=== PATIENT | male | born 1970 | race Caucasian/White ===

== ENCOUNTER 2020-11-23 09:48 | Observation (INO) | payer OTHER ==
[2020-11-23] MEDS ORDERED: ASPIRIN 81 MG PO STA (10:18)
[2020-11-23] MEDS ORDERED: LORazepam 1 MG TAB PO STA (10:18)
--- NOTE | 2020-11-23 10:22 | ED ---
General Adult HPI - General Chief complaint: Chest Pain Stated complaint: elevated BP Time Seen by Provider: 11/23/20 10:01 Source: patient, RN notes reviewed Mode of arrival: ambulatory Limitations: no limitations - History of Present Illness Initial comments: Patient is a pleasant 50-year-old male presenting to the emergency Department with chest discomfort. Onset of symptoms was this morning. Discomfort feels like heaviness. No radiation. Patient does feel somewhat anxious and tingling throughout. No associated dyspnea, nausea, or diaphoresis. Discomfort is mild and remains mild. No history of similar symptoms previously. Patient states she does have history of borderline hypertension. - Related Data Home Medications Medication Instructions Recorded Confirmed Aspirin EC [Ecotrin Low Dose] 81 mg PO HS 11/23/20 11/23/20 Ibuprofen [Motrin Ib] 200 - 400 mg PO Q8H PRN 11/23/20 11/23/20 Meloxicam [Mobic] 15 mg PO HS 11/23/20 11/23/20 tiZANidine [Zanaflex] 4 mg PO HS 11/23/20 11/23/20 Allergies Allergy/AdvReac Type Severity Reaction Status Date / Time No Known Allergies Allergy Verified 11/23/20 10:55 Review of Systems ROS Statement: Those systems with pertinent positive or pertinent negative responses have been documented in the HPI. ROS Other: All systems not noted in ROS Statement are negative. Constitutional: Denies: fever Eyes: Denies: eye pain ENT: Denies: ear pain Respiratory: Denies: cough, dyspnea Cardiovascular: Reports: as per HPI, chest pain Endocrine: Denies: fatigue Gastrointestinal: Denies: abdominal pain Genitourinary: Denies: dysuria Musculoskeletal: Denies: back pain Skin: Denies: rash Neurological: Denies: headache Past Medical History Past Medical History: Hypertension History of Any Multi-Drug Resistant Organisms: None Reported Past Surgical History: No Surgical Hx Reported Past Psychological History: No Psychological Hx Reported Smoking Status: Former smoker Past Alcohol Use History: Daily Past Drug Use History: Marijuana General Exam Limitations: no limitations General appearance: alert, in no apparent distress Head exam: Present: normocephalic Eye exam: Present: normal appearance Neck exam: Present: normal inspection Respiratory exam: Present: normal lung sounds bilaterally Cardiovascular Exam: Present: regular rate, normal rhythm Expanded Peripheral pulses: 2+: Radial (R), Radial (L), Dorsalis Pedis (R), Dorsalis Pedis (L) GI/Abdominal exam: Present: soft. Absent: tenderness Extremities exam: Present: normal inspection. Absent: pedal edema, calf tenderness Neurological exam: Present: alert Psychiatric exam: Present: normal affect, normal mood Skin exam: Present: normal color Course Vital Signs 11/23/20 11/23/20 11/23/20 09:53 10:07 10:56 Temperature 98.4 F 97.7 F Pulse Rate 100 75 Pulse Rate [ 93 Cloud Administrator ] Respiratory 16 16 Rate Blood Pressure 186/126 164/98 O2 Sat by Pulse 100 98 Oximetry EKG Findings - EKG Comments: EKG Findings:: Normal sinus rhythm and 94. WI 114. QRS 112. QT 368. QTC 460. Normal axis. Normal QRS. No acute ST change. Medical Decision Making - Medical Decision Making Patient reevaluated and resting comfortably in bed. Symptoms improved. Patient and family updated on results and plan. Case discussed with Dr. Gonzalez, who will admit covering for hospital call. - Lab Data Result diagrams: 11/23/20 10:25 11/23/20 10:25 Lab Results 11/23/20 11/23/20 11/23/20 Range/Units 10:25 10:25 10:25 WBC 6.4 (3.8-10.6) k/uL RBC 4.88 (4.30-5.90) m/uL Hgb 16.4 (13.0-17.5) gm/dL Hct 48.0 (39.0-53.0) % MCV 98.3 (80.0-100.0) fL MCH 33.7 (25.0-35.0) pg MCHC 34.2 (31.0-37.0) g/dL RDW 12.4 (11.5-15.5) % Plt Count 191 (150-450) k/uL MPV 8.4 Neutrophils % 63 % Lymphocytes % 25 % Monocytes % 6 % Eosinophils % 3 % Basophils % 1 % Neutrophils # 4.1 (1.3-7.7) k/uL Lymphocytes # 1.6 (1.0-4.8) k/uL Monocytes # 0.4 (0-1.0) k/uL Eosinophils # 0.2 (0-0.7) k/uL Basophils # 0.0 (0-0.2) k/uL PT 10.9 (9.0-12.0) sec INR 1.0 (<1.2) APTT 23.8 (22.0-30.0) sec D-Dimer <0.17 (<0.60) mg/L FEU Sodium 138 (137-145) mmol/L Potassium 4.1 (3.5-5.1) mmol/L Chloride 103 (98-107) mmol/L Carbon Dioxide 28 (22-30) mmol/L Anion Gap 7 mmol/L BUN 22 H (9-20) mg/dL Creatinine 0.95 (0.66-1.25) mg/dL Est GFR (CKD-EPI)AfAm >90 (>60 ml/min/1.73 sqM) Est GFR (CKD-EPI)NonAf >90 (>60 ml/min/1.73 sqM) Glucose 144 H (74-99) mg/dL Calcium 9.8 (8.4-10.2) mg/dL Magnesium 1.8 (1.6-2.3) mg/dL Total Bilirubin 2.0 H (0.2-1.3) mg/dL AST 34 (17-59) U/L ALT 30 (4-49) U/L Alkaline Phosphatase 61 (38-126) U/L Troponin I (0.000-0.034) ng/mL Total Protein 7.3 (6.3-8.2) g/dL Albumin 4.8 (3.5-5.0) g/dL 11/23/20 Range/Units 10:25 WBC (3.8-10.6) k/uL RBC (4.30-5.90) m/uL Hgb (13.0-17.5) gm/dL Hct (39.0-53.0) % MCV (80.0-100.0) fL MCH (25.0-35.0) pg MCHC (31.0-37.0) g/dL RDW (11.5-15.5) % Plt Count (150-450) k/uL MPV Neutrophils % % Lymphocytes % % Monocytes % % Eosinophils % % Basophils % % Neutrophils # (1.3-7.7) k/uL Lymphocytes # (1.0-4.8) k/uL Monocytes # (0-1.0) k/uL Eosinophils # (0-0.7) k/uL Basophils # (0-0.2) k/uL PT (9.0-12.0) sec INR (<1.2) APTT (22.0-30.0) sec D-Dimer (<0.60) mg/L FEU Sodium (137-145) mmol/L Potassium (3.5-5.1) mmol/L Chloride (98-107) mmol/L Carbon Dioxide (22-30) mmol/L Anion Gap mmol/L BUN (9-20) mg/dL Creatinine (0.66-1.25) mg/dL Est GFR (CKD-EPI)AfAm (>60 ml/min/1.73 sqM) Est GFR (CKD-EPI)NonAf (>60 ml/min/1.73 sqM) Glucose (74-99) mg/dL Calcium (8.4-10.2) mg/dL Magnesium (1.6-2.3) mg/dL Total Bilirubin (0.2-1.3) mg/dL AST (17-59) U/L ALT (4-49) U/L Alkaline Phosphatase (38-126) U/L Troponin I <0.012 (0.000-0.034) ng/mL Total Protein (6.3-8.2) g/dL Albumin (3.5-5.0) g/dL - Radiology Data Radiology results: image reviewed (Chest x-ray shows no acute process) Disposition Clinical Impression: Chest pain Disposition: ADMITTED IP TO THIS [facility] Is patient prescribed a controlled substance at d/c from ED?: No Referrals: Gorge Crabtree MD [Primary Care Provider] - 1-2 days Decision Time: 11:24
[2020-11-23 10:36] LABS: Basophils % (A) 1 %; Eosinophils # (A) 0.2 k/uL (0-0.7); Eosinophils % (A) 3 %; HGB 16.4 gm/dL (13.0-17.5); Lymphocytes # (A) 1.6 k/uL (1.0-4.8); Lymphocytes % (A) 25 %; MCH 33.7 pg (25.0-35.0); MCHC 34.2 g/dL (31.0-37.0); MCV 98.3 fL (80.0-100.0); Mean Platelet Volume 8.4; Monocytes # (A) 0.4 k/uL (0-1.0); Monocytes % (A) 6 %; Neutrophils # (A) 4.1 k/uL (1.3-7.7); Neutrophils % (A) 63 %; Platelet Count 191 k/uL (150-450); RBC 4.88 m/uL (4.30-5.90); RDW 12.4 % (11.5-15.5); WBC 6.4 k/uL (3.8-10.6)
[2020-11-23 10:45] LABS: ALT 30 U/L (4-49); AST 34 U/L (17-59); African American GFR (CKD) >90 (>60 ml/min/1.73 sqM); Albumin 4.8 g/dL (3.5-5.0); Alkaline Phosphatase 61 U/L (38-126); Anion Gap 7 mmol/L; Blood Urea Nitrogen 22 mg/dL (9-20); Calcium 9.8 mg/dL (8.4-10.2); Carbon Dioxide 28 mmol/L (22-30); Chloride 103 mmol/L (98-107); Glucose 144 mg/dL (74-99); Magnesium 1.8 mg/dL (1.6-2.3); Non-African American GFR(CKD) >90 (>60 ml/min/1.73 sqM); Potassium 4.1 mmol/L (3.5-5.1); Sodium 138 mmol/L (137-145); Total Protein 7.3 g/dL (6.3-8.2)
[2020-11-23 10:50] LABS: D-Dimer <0.17 mg/L FEU (<0.60); Partial Thromboplastin Time 23.8 sec (22.0-30.0); Prothrombin Time 10.9 sec (9.0-12.0)
--- NOTE | 2020-11-23 10:53 | XR ---
EXAMINATION TYPE: XR chest 2V DATE OF EXAM: 11/23/2020 COMPARISON: NONE HISTORY: Chest pain. TECHNIQUE: Frontal and lateral views of the chest are obtained. FINDINGS: Overlying EKG leads. There is no focal air space opacity, pleural effusion, or pneumothorax seen. The cardiac silhouette size is within normal limits. The osseous structures are intact. IMPRESSION: No acute cardiopulmonary process.
[2020-11-23] MEDS ORDERED: NITROGLYCERIN SL TABS 0.4 MG TAB SUBLINGUAL PRN (11:25)
[2020-11-23] MEDS ORDERED: NITROGLYCERIN OINT 1 INCH/GM PACKET TOPICAL SCH (12:00)
[2020-11-23 12:54] VITALS: RESP 18
--- NOTE | 2020-11-23 13:03 | P.CRDCN ---
History of Present Illness Consult date: 11/23/20 Requesting physician: Yeni Javier Reason for Consult (text): chest pain Chief complaint: tingling of the face, hands, and feet, dizziness History of present illness: This pleasant 50-year-old gentleman with a past history of hypertension for which he has not been on any antihypertensive medications recently as he felt they did not help the past, history of chronic back pain for which he uses medicinal marijuana. He has no past cardiac history and no significant family history of CAD. He is a nonsmoker. He drinks 2-3 beers daily. He presented to the emergency department with complaints of left-sided facial tingling and numbness as well as tingling in his hands and feet with some dizziness and lightheadedness that he says came in waves. He denies any real chest pain but did have a strange sensation in his chest that he couldn't exactly describe but said that maybe it was like a pressure or fullness. Chest x-ray on admission showed no acute cardiopulmonary process. EKG showed normal sinus rhythm with no acute ST-T wave changes to indicate ischemia. Blood pressure was quite elevated on admission at 186/126 following placement of nitroglycerin paste subsequent reading in the emergency department was 164/98. Blood pressure upon presentation to the nursing unit remains elevated at 155 over 90s. Laboratory values show normal CBC, sodium 138, potassium 4.1, BUN 22 and creatinine 0.95. Troponin has been negative times one with subsequent troponins ordered. Home me dications include Tigan edema 4 mg by mouth daily at bedtime, meloxicam 15 mg by mouth daily at bedtime, low-dose aspirin and ibuprofen 200-400 mg every 8 hours at needed which she takes sparingly due to some stomach upset. On examination the patient is resting comfortably in bed. The tingling he was experiencing has subsided. His chest feels better. He denies any complaints of shortness of br eath, edema, orthopnea or PND. 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 He is not compliant with a low-sodium diet as he a lot of processed foods. Past Medical History Past Medical History: Hypertension History of Any Multi-Drug Resistant Organisms: None Reported Past Surgical History: No Surgical Hx Reported Past Psychological History: No Psychological Hx Reported Smoking Status: Former smoker Past Alcohol Use History: Daily Past Drug Use History: Marijuana Medications and Allergies Home Medications Medication Instructions Recorded Confirmed Type Aspirin EC [Ecotrin Low Dose] 81 mg PO HS 11/23/20 11/23/20 History Ibuprofen [Motrin Ib] 200 - 400 mg PO Q8H PRN 11/23/20 11/23/20 History Meloxicam [Mobic] 15 mg PO HS 11/23/20 11/23/20 History tiZANidine [Zanaflex] 4 mg PO HS 11/23/20 11/23/20 History Allergies Allergy/AdvReac Type Severity Reaction Status Date / Time No Known Allergies Allergy Verified 11/23/20 10:55 Physical Exam Vitals: Vital Signs Temp Pulse Pulse Resp BP Pulse Ox 11/23/20 11:50 97.9 F 70 16 151/97 99 11/23/20 10:56 97.7 F 75 16 164/98 98 11/23/20 10:07 93 11/23/20 09:53 98.4 F 100 16 186/126 100 Intake and Output 11/22/20 11/23/20 11/23/20 22:59 06:59 14:59 Other: Weight 86.183 kg PHYSICAL EXAMINATION: This is a 50-year-old male in no apparent distress at the time of my examination. VITAL SIGNS: Blood pressure 155/93, heart rate 74, respirations 18, temp 97.9F. Patient is 99 % on room air. HEENT: Head is atraumatic, normocephalic. Pupils are equal, round. Sclerae anicteric. Conjunctivae are clear. Mucous membranes of the mouth are moist. Neck is supple. There is no elevated jugular venous pressure. No carotid bruit is heard. CHEST EXAMINATION: Clear to auscultation bilaterally. No wheezes rales or rhonchi. Respirations even and nonlabored. HEART EXAMINATION: Heart regular, positive S1 and S2. No S3. No S4. No clicks, rubs or murmurs. ABDOMEN: Soft, nontender. Bowel sounds are heard. No organomegaly noted. EXTREMITIES: 2+ peripheral pulses with no evidence of peripheral edema and no calf tenderness noted. NEUROLOGIC EXAMINATION: Patient is awake, alert and oriented x3. Results 11/23/20 10:25 11/23/20 10:25 Cardiac Enzymes 11/23/20 11/23/20 Range/Units 10:25 10:25 AST 34 (17-59) U/L Troponin I <0.012 (0.000-0.034) ng/mL Coagulation 11/23/20 Range/Units 10:25 PT 10.9 (9.0-12.0) sec APTT 23.8 (22.0-30.0) sec CBC 11/23/20 Range/Units 10:25 WBC 6.4 (3.8-10.6) k/uL RBC 4.88 (4.30-5.90) m/uL Hgb 16.4 (13.0-17.5) gm/dL Hct 48.0 (39.0-53.0) % Plt Count 191 (150-450) k/uL Comprehensive Metabolic Panel 11/23/20 Range/Units 10:25 Sodium 138 (137-145) mmol/L Potassium 4.1 (3.5-5.1) mmol/L Chloride 103 (98-107) mmol/L Carbon Dioxide 28 (22-30) mmol/L BUN 22 H (9-20) mg/dL Creatinine 0.95 (0.66-1.25) mg/dL Glucose 144 H (74-99) mg/dL Calcium 9.8 (8.4-10.2) mg/dL AST 34 (17-59) U/L ALT 30 (4-49) U/L Alkaline Phosphatase 61 (38-126) U/L Total Protein 7.3 (6.3-8.2) g/dL Albumin 4.8 (3.5-5.0) g/dL Current Medications Generic Name Dose Route Start Last Admin Trade Name Freq PRN Reason Stop Dose Admin Aspirin 325 mg 11/24/20 09:00 Aspirin 325 Mg Tab PO DAILY CANDY Nitroglycerin 0.4 mg 11/23/20 11:25 Nitroglycerin Sl Tabs 0.4 Mg Tab SUBLINGUAL Q5M PRN Chest Pain Nitroglycerin 1 inch 11/23/20 12:00 11/23/20 11:48 Nitroglycerin Oint 1 Inch/Gm Packet TOPICAL 1 inch Q6H CANDY Administration Sodium Chloride 10 ml 11/23/20 21:00 Sodium Chloride 0.9% Flush 10 Ml Syringe IV BID CANDY Intake and Output 11/22/20 11/23/20 11/23/20 22:59 06:59 14:59 Other: Weight 86.183 kg Patient Weight 11/24/20 06:59 Weight 86.183 kg 11/23/20 10:25 11/23/20 10:25 Assessment and Plan Assessment: #1 symptoms of facial tingling, bilateral hand bilateral foot tingling as well as some chest pressure #2 hypertensive urgency #3 chronic low back pain #4 medicinal marijuana use #5 daily alcohol use Plan: From cardiology perspective we will continue to trend the troponins. Obtain a 2-D echo with Doppler. We will add BRIAN inhibitor as well as thiazide diuretic. Continue to trend the blood pressure and depending on the response further recommendations will be made. CLASSER note has been reviewed, I agree with a documented findings and plan of care. Patient was seen and examined.
[2020-11-23] MEDS ORDERED: ONDANSETRON 4 MG/2 ML VIAL IVP PRN ×2 (13:15→21:56)
[2020-11-23] MEDS ORDERED: ACETAMINOPHEN TAB 325 MG TAB PO PRN (13:15)
[2020-11-23] MEDS: hydroCHLOROthiazide 12.5 MG CAP PO SCH (13:32)
[2020-11-23] MEDS: lisinopriL 10 MG TAB PO SCH (13:32)
--- NOTE | 2020-11-23 13:38 | P.HPIM ---
History of Present Illness H&P Date: 11/23/20 Chief Complaint: Chest discomfort This is a 50-year-old male with past medical history significant for essential hypertension not on any medications at this time presented to the emergency room with complaint of left-sided facial tingling and tingling in both hands as well as some chest pressure. Patient said that he was playing videogames at the time when he noted some twitching in his left face underneath his left eye. Soon after he noted tingling in both hands and was having some chest pressure with some lightheadedness. He informed his who was concerned and asked him to go to the emergency room for further evaluation. On presentation to the ER, patient was found to be in hypertensive urgency with systolic blood pressure greater than 180 and diastolic in the 120s. 12-lead EKG showed no acute ischemic changes. Patient was chest pain-free. He was placed on observation with cardiology consultation. Patient informed me that he quit taking his medication for blood pressure several month ago after he said that they're not working for him. He said that his blood pressure usually runs in the 130s and 140s over 90s at home. He is otherwise fairly active. He quit smoking cigarettes more than 10 years ago. He drinks 2 alcoholic drinks daily. He is not known to have any coronary artery disease. Review of Systems Review of system: 14 points review of systems were obtained and were negative except to what were mentioned in the HPI. Past Medical History Past Medical History: Hypertension Additional Past Medical History / Comment(s): stenosis, back pain from injury History of Any Multi-Drug Resistant Organisms: None Reported Past Surgical History: No Surgical Hx Reported Past Psychological History: No Psychological Hx Reported Smoking Status: Former smoker Past Alcohol Use History: Daily Past Drug Use History: Marijuana Medications and Allergies Home Medications Medication Instructions Recorded Confirmed Type Aspirin EC [Ecotrin Low Dose] 81 mg PO HS 11/23/20 11/23/20 History Ibuprofen [Motrin Ib] 200 - 400 mg PO Q8H PRN 11/23/20 11/23/20 History Meloxicam [Mobic] 15 mg PO HS 11/23/20 11/23/20 History tiZANidine [Zanaflex] 4 mg PO HS 11/23/20 11/23/20 History Allergies Allergy/AdvReac Type Severity Reaction Status Date / Time No Known Allergies Allergy Verified 11/23/20 10:55 Physical Exam Vitals: Vital Signs Temp Pulse Pulse Resp BP BP Pulse Ox 11/23/20 12:53 97.9 F 74 18 155/93 99 11/23/20 11:50 97.9 F 70 16 151/97 99 11/23/20 10:56 97.7 F 75 16 164/98 98 11/23/20 10:07 93 11/23/20 09:53 98.4 F 100 16 186/126 100 Intake and Output 11/22/20 11/23/20 11/23/20 22:59 06:59 14:59 Other: Weight 86.183 kg General: The patient is awake and alert, in no distress Eye: there is normal conjunctiva bilaterally. Neck: The neck is supple, there is no JVD. Cardiovascular: Normal S1-S2, no S3-S4, no murmurs. Respiratory: Lungs clear to auscultation bilaterally Gastrointestinal: Abdomen is soft, nontender Musculoskeletal: There is no pedal edema. Neurological:. Speech is normal. Skin: Skin is warm and dry Results CBC & Chem 7: 11/23/20 10:25 11/23/20 10:25 Labs: Abnormal Lab Results - Last 24 Hours (Table) 11/23/20 Range/Units 10:25 BUN 22 H (9-20) mg/dL Glucose 144 H (74-99) mg/dL Total Bilirubin 2.0 H (0.2-1.3) mg/dL Thrombosis Risk Factor Assmnt - Choose All That Apply Each Factor Represents 1 point: Age 41-60 years Thrombosis Risk Factor Assessment Total Risk Factor Score: 1 Thrombosis Risk Factor Assessment Level: Low Risk Assessment and Plan Assessment: 1. Hypertensive urgency: Patient was started on lisinopril and hydrochloro thiazide. We will continue to monitor blood pressure closely. Encourage medication compliance. 2. Chest pain, mostly atypical in nature. Twelve-lead EKG showed no acute ischemic changes. Serial troponin negative. Patient was seen and evaluated by cardiology. Echocardiogram ordered. 3. Daily alcohol use, 2 drinks per day. Counseled to cut down. 4. Chronic back pain 5. DVT prophylaxis with subcu heparin Continue current management otherwise. Telemetry monitoring. 10 troponin. Bl ood pressure improving. Anticipate discharge home in the morning.
[2020-11-23] MEDS: HEPARIN SODIUM,PORCINE 5,000 UNIT/ML 1 ML VIAL SQ SCH (20:46)
[2020-11-23] MEDS ORDERED: tiZANidine 4 MG TAB PO SCH (22:00)
[2020-11-23] MEDS ORDERED: MELOXICAM 7.5 MG TAB PO SCH (22:00)
--- NOTE | 2020-11-23 22:59 | ECHOF ---
Referral Reason:chest pain MEASUREMENTS -------- HEIGHT: 182.9 cm WEIGHT: 86.2 kg BP: 155/93 RVIDd: 3.8 cm (< 3.3) IVSd: 1.4 cm (0.6 - 1.1) LVIDd: 4.1 cm (3.9 - 5.3) LVPWd: 1.5 cm (0.6 - 1.1) IVSs: 2.0 cm LVIDs: 2.3 cm LVPWs: 1.5 cm LAESV Index (A-L): 22.29 ml/m Ao Diam: 2.7 cm (2.0 - 3.7) AV Cusp: 1.8 cm (1.5 - 2.6) MV EXCURSION: 16.144 mm (> 18.000) MV EF SLOPE: 86 mm/s (70 - 150) EPSS: 0.1 cm MV E Frankie: 0.97 m/s MV DecT: 187 ms MV A Frankie: 0.86 m/s MV E/A Ratio: 1.13 RAP: 5.00 mmHg RVSP: 29.58 mmHg FINDINGS -------- Sinus rhythm. This was a technically adequate study. The left ventricular size is normal. There is moderate concentric left ventricular hypertrophy. O verall left ventricular systolic function is normal with, an EF between 55 - 60 %. The diastolic fi lling pattern is normal for the age of the patient 11.79. The right ventricle is mildly enlarged. Normal LA size by volume 22+/-6 ml/m2. The right atrium is mildly enlarged. Interatrial and interventricular septum intact. The aortic valve is trileaflet, and appears structurally normal. No aortic stenosis or regurgitation. The mitral valve is normal. Mild mitral regurgitation is present. The tricuspid valve appears structurally normal. Mild tricuspid regurgitation present. Right vent ricular systolic pressure is normal at < 35 mmHg. The right ventricular systolic pressure, as measu red by Doppler, is 29.58mmHg. There is no pulmonic regurgitation present. The aortic root size is normal. Normal inferior vena cava with normal inspiratory collapse consistent with estimated right atrial pre ssure of 5 mmHg. There is no pericardial effusion. CONCLUSIONS -------- 1. There is moderate concentric left ventricular hypertrophy. 2. Overall left ventricular systolic function is normal with, an EF between 55 - 60 %. 3. The right ventricle is mildly enlarged. 4. Normal LA size by volume 22+/-6 ml/m2. 5. The right atrium is mildly enlarged. 6. The aortic valve is trileaflet, and appears structurally normal. No aortic stenosis or regurgitati on. 7. Mild mitral regurgitation is present. 8. Mild tricuspid regurgitation present. PESTICIDE APPLICATOR: Olga Johnson RDCS
[2020-11-24 06:49] VITALS: BP 145/89; PULSE 67; TEMP 98
[2020-11-24] MEDS: lisinopriL 10 MG TAB PO SCH (07:15)
[2020-11-24] MEDS: hydroCHLOROthiazide 12.5 MG CAP PO SCH (07:15)
[2020-11-24] MEDS: HEPARIN SODIUM,PORCINE 5,000 UNIT/ML 1 ML VIAL SQ SCH (07:19)
[2020-11-24] MEDS ORDERED: ASPIRIN 325 MG TAB PO SCH (09:00)
[2020-11-24] MEDS ORDERED: ASPIRIN 81 MG PO SCH (09:00)
[2020-11-24 09:45] LABS: African American GFR (CKD) 90.9 (60.0-200.0); Anion Gap 4.4 mmol/L (4.00-12.00); Calcium 9.6 mg/dL (8.7-10.3); Carbon Dioxide 28.6 mmol/L (21.6-31.8); Chol/HDL Ratio 3.62; Non-African American GFR(CKD) 78.4 (60.0-200.0); Potassium 4.3 mmol/L (3.5-5.5)
--- NOTE | 2020-11-24 10:52 | P.PN ---
Subjective Progress Note Date: 11/24/20 This pleasant 50-year-old gentleman with a past history of hypertension for which he has not been on any antihypertensive medications recently as he felt they did not help the past, history of chronic back pain for which he uses medicinal marijuana. He has no past cardiac history and no significant family history of CAD. He is a nonsmoker. He drinks 2-3 beers daily. He presented to the emergency department with complaints of left-sided facial tingling and numbness as well as tingling in his hands and feet with some dizziness and lightheadedness that he says came in waves. He denies any real chest pain but did have a strange sensation in his chest that he couldn't exactly describe but said that maybe it was like a pressure or fullness. Chest x-ray on admission showed no acute cardiopulmonary process. EKG showed normal sinus rhythm with no acute ST-T wave changes to indicate ischemia. Blood pressure was quite elevated on admission at 186/126 following placement of nitroglycerin paste subsequent reading in the emergency department was 164/98. Blood pressure upon presentation to the nursing unit remains elevated at 155 over 90s. Laboratory values show normal CBC, sodium 138, potassium 4.1, BUN 22 and creatinine 0.95. Troponin has been negative times one with subsequent troponins ordered. Home medications include tizanadine 4 mg by mouth daily at bedtime, meloxicam 15 mg by mouth daily at bedtime, low-dose aspirin and ibuprofen 200-400 mg every 8 hours at needed which she takes sparingly due to some stomach upset. On examination the patient is resting comfortably in bed. The tingling he was experiencing has subsided. His chest feels better. He denies any complaints of shortness of breath, edema, orthopnea or PND. 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 He is not compliant with a low-sodium diet as he a lot of processed foods. 11/24/20 Patient was seen and examined today. The time of my exam patient is sitting up in a chair resting comfortably. Does not appear to be in any distress. He is tolerating lisinopril 10 mg by mouth daily and hydrochlorothiazide 12.5 mg by mouth daily well. Blood pressure this morning 145/89 labs shows stable renal function and electrolytes. He's had no further complaints of tingling in his face or extremities. He's had no chest discomfort. Initial total cholesterol of 181, LDL 106, HDL 50 and triglycerides of 125. His current 10 year ASCVD risk is 3.9%. Echocardiogram with Doppler study done yesterday showed normal LV systolic function with moderate LVH mild MR and mild TR. Objective - Vital Signs Vital signs: Vital Signs Temp 98.0 F 11/24/20 06:49 Pulse 67 11/24/20 06:49 Resp 18 11/24/20 06:49 BP 145/89 11/24/20 06:49 Pulse Ox 97 11/24/20 06:49 Intake & Output 11/23/20 11/24/20 11/24/20 18:59 06:59 18:59 Weight 86.183 kg Other: Voiding Method Toilet Toilet Toilet # Voids 1 0 - Exam PHYSICAL EXAMINATION: HEENT: Head is atraumatic, normocephalic. Pupils equal, round. Neck is supple. There is no elevated jugular venous pressure. HEART EXAMINATION: Heart sounds regular, S1 and S2 normal. No murmur or gallop heard. CHEST EXAMINATION: Lungs are clear to auscultation and precussion. No chest wall tenderness is noted on palpation or with deep breathing. ABDOMEN: Soft, nontender. Bowel sounds are heard. No organomegaly noted. EXTREMITIES: 2+ peripheral pulses with no evidence of peripheral edema and no calf tenderness noted. NEUROLOGIC patient is awake, alert and oriented x3. . - Labs CBC & Chem 7: 11/23/20 10:25 11/24/20 07:02 Labs: Abnormal Lab Results - Last 24 Hours (Table) 11/23/20 11/24/20 Range/Units 10:25 07:02 BUN 22 H (9-20) mg/dL Glucose 144 H 111 H (74-99) mg/dL Total Bilirubin 2.0 H (0.2-1.3) mg/dL Assessment and Plan Assessment: #1 symptoms of facial tingling, bilateral hand bilateral foot tingling as well as some chest pressure, resolved #2 hypertensive urgency #3 chronic low back pain #4 medicinal marijuana use #5 daily alcohol use Plan: From cardiology perspective we will increase hydrochlorothiazide to 25mg daily. We anticipate patient will be discharged home. Will follow-up in the office in a couple weeks and likely schedule the patient for outpatient stress testing at that time. He was advised on low sodium diet. COMMUNITY MARKETING MANAGER note has been reviewed, I agree with a documented findings and plan of care. Patient was seen and examined.
[2020-11-24] MEDS ORDERED: hydroCHLOROthiazide 25 MG TAB PO SCH (11:15)
--- NOTE | 2020-11-24 11:23 | P.DS ---
Providers Date of admission: 11/23/20 11:25 Expected date of discharge: 11/24/20 Attending physician: Yeni Javier Consults: 11/23/20 11:25 Consult Physician Urgent Consulting Provider: Mohsen Yee Consult Reason/Comments: cp Do you want consulting provider notified?: Yes Primary care physician: Gorge Crabtree MD Hospital Course: This is a 50-year-old male with past medical history significant for chronic back and neck pain who presented to the emergency room with bilateral hand tingling and chest pressure. Patient was evaluated in the ER and 12-lead EKG showed no acute ischemic changes. He was noted to be in hypertensive urgency. He was placed on observation for further evaluation. He was seen and evaluated by cardiology. Serial troponin remained negative. Echocardiogram showed preserved ejection fraction with no significant valvular abnormalities. Patient was started on lisinopril/hydrochlorothiazide with improvement in his blood pressure readings. He will be discharged home in a stable condition. He will follow-up with cardiology in the office as directed. Possible cardiac stress test as an outpatient. For further details about this observation stay please refer to the electronic chart. Plan - Discharge Summary New Discharge Prescriptions: New Lisinopril-Hctz 20-12.5 mg [Zestoretic 20-12.5] 1 tab PO DAILY #30 tab Continue tiZANidine [Zanaflex] 4 mg PO HS Meloxicam [Mobic] 15 mg PO HS Aspirin EC [Ecotrin Low Dose] 81 mg PO HS Discontinued Ibuprofen [Motrin Ib] 200 - 400 mg PO Q8H PRN PRN Reason: Pain Discharge Medication List Aspirin EC [Ecotrin Low Dose] 81 mg PO HS 11/23/20 [History] Meloxicam [Mobic] 15 mg PO HS 11/23/20 [History] tiZANidine [Zanaflex] 4 mg PO HS 11/23/20 [History] Lisinopril-Hctz 20-12.5 mg [Zestoretic 20-12.5] 1 tab PO DAILY #30 tab 11/24/20 [Rx] Follow up Appointment(s)/Referral(s): Gorge Crabtree MD [Primary Care Provider] - 1-2 days Patient Instructions/Handouts: Low-Sodium Diet (DC) Activity/Diet/Wound Care/Special Instructions: Low sodium diet Discharge Disposition: HOME SELF-CARE
== END 2020-11-24 11:37 | disposition home or self-care (01) ==
LOC: EC 09:48 → 6NMEDSUR 11:25
PROVIDERS: ADMIT Internal Medicine; ATTEND Internal Medicine
DX: R07.89 Other chest pain (principal); I16.0 Hypertensive urgency; R20.2 Paresthesia of skin; I10 Essential (primary) hypertension; M54.5 Low back pain; G89.29 Other chronic pain; Z72.89 Other problems related to lifestyle; Z20.828 Contact with and (suspected) exposure to other viral communicable diseases; Z79.1 Long term (current) use of non-steroidal anti-inflammatories (NSAID); Z79.82 Long term (current) use of aspirin; Z79.899 Other long term (current) drug therapy; Z87.891 Personal history of nicotine dependence; Z87.828 Personal history of other (healed) physical injury and trauma
CPT/HCPCS: 96372 ×2; 93005 ×2; 99285; 36415; 93306; 85379; 80061; 80053; 80048; 83735; 84484; 85025; 85610; 85730; 87635; 71046; G0378 ×2; J1644 ×2

== ENCOUNTER 2022-01-03 18:36 | Observation (INO) | payer OTHER ==
--- NOTE | 2022-01-03 20:55 | ED ---
Chest Pain HPI - General Source: patient Mode of arrival: wheelchair Limitations: no limitations <Maria G Alvarado - Last Filed: 01/03/22 20:48> <Alvarado Hodges - Last Filed: 01/04/22 00:03> - General Chief Complaint: Chest Pain Stated Complaint: Chest pain Time Seen by Provider: 01/03/22 19:48 - History of Present Illness Initial Comments: Mc is a 51-year-old male who presents the ER today for evaluation of chest pain. Patient reports that yesterday yardwork and he developed some chest pain. Pain was initially sharp but became pressure-like. Patient had some associated shortness of breath but no diaphoresis or lightheadedness. Prompted a today he continues to have some mild shortness of breath and pressure in his chest that radiates to his back. Patient reports that he was seen about a year ago and at the time and been noncompliant with his antihypertensives, he was admitted for chest pain at that time, arranged to have an outpatient stress test however it was rescheduled and he never had a completed and never followed up with cardiology. Patient's a former smoker with history of hypertension and a family history of heart disease including grandfather who had multiple bypasses. (Maria G Alvarado) - Related Data Home Medications Medication Instructions Recorded Confirmed Aspirin EC [Ecotrin Low Dose] 81 mg PO HS 11/23/20 01/03/22 Meloxicam [Mobic] 15 mg PO HS PRN 11/23/20 01/03/22 Hydrochlorothiazide 12.5 mg PO DAILY 01/03/22 01/03/22 [hydroCHLOROthiazide] amLODIPine [Norvasc] 5 mg PO DAILY 01/03/22 01/03/22 Allergies Allergy/AdvReac Type Severity Reaction Status Date / Time No Known Allergies Allergy Verified 01/03/22 21:49 Review of Systems ROS Other: All systems not noted in ROS Statement are negative. <Maria G Alvarado - Last Filed: 01/03/22 20:48> ROS Other: All systems not noted in ROS Statement are negative. <Alvarado Hodges - Last Filed: 01/04/22 00:03> ROS Statement: Those systems with pertinent positive or pertinent negative responses have been documented in the HPI. EKG Findings - EKG Comments: EKG Findings:: EKG was obtained due to complaint of chest pain, EKG was obtained at 1848, repeat is 90 rhythm is sinus there is a normal axis, normal intervals, W[place] 122, QRS 105, QTC 409, no acute ST elevations or depressions are noted there is no evidence of acute ischemia or infarction. <Maria G Alvarado - Last Filed: 01/03/22 20:48> Past Medical History Past Medical History: Hypertension Additional Past Medical History / Comment(s): stenosis, back pain from injury History of Any Multi-Drug Resistant Organisms: None Reported Past Surgical History: No Surgical Hx Reported Past Psychological History: No Psychological Hx Reported Smoking Status: Former smoker Past Alcohol Use History: Daily Past Drug Use History: Marijuana <Maria G Alvarado - Last Filed: 01/03/22 20:48> General Exam Limitations: no limitations <Maria G Alvarado - Last Filed: 01/03/22 20:48> - General Exam Comments Initial Comments: Physical Exam GENERAL: Patient is well-developed and well-nourished. Patient is nontoxic and well- hydrated and is in no distress. HENT: Normocephalic, Atraumatic. EYES: PERRL, EOMI PULMONARY: Unlabored respirations. No audible rales rhonchi or wheezing was noted. CARDIOVASCULAR: There is a regular rate and rhythm without any murmurs gallops or rubs. Pulses present and equal in bilateral radial pulses ABDOMEN: Soft and nontender with normal bowel sounds. SKIN: Skin is clear with no lesions or rashes and otherwise unremarkable. : Deferred NEUROLOGIC: Patient is alert and oriented x3. Moving all extremities spontaneously MUSCULOSKELETAL: Normal extremities with adequate strength and full range of motion. No lower extremity swelling or edema. No calf tenderness. PSYCHIATRIC: Normal psychiatric evaluation. (Maria G Alvarado) Course Vital Signs 01/03/22 01/03/22 01/03/22 18:42 19:49 21:28 Temperature 98.2 F Pulse Rate 96 81 72 Respiratory 16 18 18 Rate Blood Pressure 152/96 146/104 149/100 O2 Sat by Pulse 100 98 97 Oximetry Chest Pain MDM <Alvarado Hodges - Last Filed: 01/04/22 00:03> - MDM This patient is a 51-year-old man having episodic chest pains signed out to me pending lab results. I reviewed the studies with the patient and his . Dr. Alvarado had wanted the patient to have admission for serial enzymes, telemetry monitoring, cardiology consultation and the patient is in agreement with this. Case discussed with Dr. Martinez. (Alvarado Hodges) Disposition <Maria G Alvarado - Last Filed: 01/03/22 20:48> Is patient prescribed a controlled substance at d/c from ED?: No <Alvarado Hodges - Last Filed: 01/04/22 00:03> Clinical Impression: Chest pain Disposition: ADMITTED IP TO THIS HOSP Condition: Good Instructions (If sedation given, give patient instructions): Chest Pain (ED) Referrals: Gorge Crabtree MD [Primary Care Provider] - 1-2 days
--- NOTE | 2022-01-03 21:06 | XR ---
EXAMINATION TYPE: XR chest 2V DATE OF EXAM: 01/03/2022 COMPARISON: 11/23/2020 HISTORY: Chest pain TECHNIQUE: 2 views FINDINGS: Heart and mediastinum are normal. Lungs are clear. Diaphragm is normal. The bony thorax jade ears normal. There are chest leads. IMPRESSION: Normal chest. No change.
[2022-01-03 21:25] LABS: ALT 36 U/L (4-49); AST 39 U/L (17-59); African American GFR (CKD) >90 (>60 ml/min/1.73 sqM); Albumin 4.8 g/dL (3.5-5.0); Alkaline Phosphatase 61 U/L (38-126); Anion Gap 9 mmol/L; Blood Urea Nitrogen 15 mg/dL (9-20); Calcium 9.7 mg/dL (8.4-10.2); Carbon Dioxide 27 mmol/L (22-30); Chloride 102 mmol/L (98-107); Glucose 103 mg/dL (74-99); Lipase 64 U/L (23-300); Magnesium 2.1 mg/dL (1.6-2.3); Non-African American GFR(CKD) >90 (>60 ml/min/1.73 sqM); Potassium 3.7 mmol/L (3.5-5.1); Sodium 138 mmol/L (137-145); Total Bilirubin 1.8 mg/dL (0.2-1.3); Total Protein 7.4 g/dL (6.3-8.2)
[2022-01-03 21:34] LABS: Basophils % (A) 0 %; Eosinophils # (A) 0.1 k/uL (0-0.7); Eosinophils % (A) 1 %; HCT 45.6 % (39.0-53.0); HGB 15.9 gm/dL (13.0-17.5); Lymphocytes # (A) 1.4 k/uL (1.0-4.8); Lymphocytes % (A) 17 %; MCH 34.6 pg (25.0-35.0); MCHC 34.9 g/dL (31.0-37.0); MCV 99.2 fL (80.0-100.0); Mean Platelet Volume 8.5; Monocytes # (A) 0.3 k/uL (0-1.0); Monocytes % (A) 4 %; Neutrophils # (A) 6.3 k/uL (1.3-7.7); Neutrophils % (A) 76 %; Platelet Count 193 k/uL (150-450); RDW 13.2 % (11.5-15.5); WBC 8.3 k/uL (3.8-10.6)
[2022-01-03 21:38] LABS: INR 1.1 (<1.2); Partial Thromboplastin Time 24.6 sec (22.0-30.0); Prothrombin Time 11.4 sec (9.0-12.0)
[2022-01-04] MEDS ORDERED: NITROGLYCERIN SL TABS 0.4 MG TAB SUBLINGUAL PRN (00:04)
[2022-01-04 04:24] VITALS: PULSE 62
[2022-01-04 07:26] VITALS: BP 148/87; RESP 15; TEMP 98
[2022-01-04] MEDS ORDERED: MELOXICAM 7.5 MG TAB PO PRN (08:30)
[2022-01-04] MEDS ORDERED: amLODIPine 5 MG TAB PO SCH (09:00)
[2022-01-04] MEDS ORDERED: MAG HYDROX/AL HYDROX/SIMETH 30 ML CUP PO SCH (09:00)
[2022-01-04] MEDS ORDERED: hydroCHLOROthiazide 12.5 MG CAP PO SCH (09:00)
--- NOTE | 2022-01-04 10:56 | P.HPIM ---
History of Present Illness H&P Date: 01/04/22 Please utilize this for a H&P and discharge summary. History of present illness This is a 51-year-old who follows with Dr. Krishnamurthy with a past medical history significant for hypertension. Denies history of high cholesterol Who was seen in the emergency room yesterday for chest pain/pressure that started on Wednesday. Patient states that he was doing yard work on Wednesday where he began to have some funny feeling in his chest it did subside once he was done working however a few hours later he noticed the pain returned and felt more like a pressure. Patient denied any shortness of breath or sweating when the chest pain was happening. Patient does have some shortness of breath at this time. Patient does feel like some of the pain may be coming from his epigastric area. No history of acid reflux. Patient complains of chills no fever or cough. Patient was seen 1 year ago with the same complaints. He was scheduled to have a stress test one year ago however it was canceled and then he never followed up. Patient does have history of chronic back pain which he utilizes marijuana both edibles and vaping. Patient did have his vaccine and is boosted. Patient quit smoking approximately 15 years ago, he does drink 2 beers a day. At this time patient is found sitting up in bed in no acute distress. Patient states that he does not have any chest pain/pressure no shortness of breath at this time. Patient is afebrile, heart rate 62, respirations 15, blood pressure 148/87, pulse ox 99% on room air. Troponins were negative. Potassium 3.7, BUN 15, creatinine 0.94. Echocardiogram from 1 year ago shows an EF of 55-60%. Review Of Systems: Constitutional: No fever, reports chills, no night sweats. No weight change. No weakness, fatigue or lethargy. No daytime sleepiness. EENT: No headache. No blurred vision or double vision, no loss of vision. No loss of Hearing, no ringing in the ears, no dizziness. No nasal drainage or congestion. No epistaxis. No sore throat. Lungs: Resolved shortness of breath, cough, no sputum production. No wheezing. Cardiovascular: Resolved chest pain, no lower extremity edema. No palpitations. No paroxysmal nocturnal dyspnea. No orthopnea. No lightheadedness or dizziness. No syncopal episodes. Abdominal: no abdominal discomfort. No nausea, vomiting. no diarrhea. No constipation. No bloody or tarry stools. no loss of appetite. Genitourinary: No dysuria, increased frequency, urgency. No urinary retention. Musculoskeletal: No myalgias. No muscle weakness, no gait dysfunction, no frequent falls. No back pain. No neck pain. Integumentary: No wounds, no lesions. No rash or pruritus. No unusual bruising. No change in hair or nails. Neurologic: No aphasia. No facial droop. No change in mentation. No head injury. No headache. No paralysis. No paresthesia. Psychiatric: No depression. No anxiety. No mood swings. Endocrine: No abnormal blood sugars. No weight change. No excessive sweating or thirst. Social history: Patient utilizes marijuana 3-4 times a day with edibles and gaping, drinks approximately 2 beers per day, quit smoking 15 years ago. 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 Does not use home O2 nebulizer or CPAP machine. Family history: Mother is alive and healthy, father is alive with history of hypertension and GERD, brother is healthy. Children are healthy. Physical examination General Appearance: Alert, cooperative, no distress, appears stated age. Neck HEENT: Supple, no lymphadenopathy, no thyroid enlargement, no carotid bruits. Lungs: Clear to auscultation without crackles or wheezes no rhonchi, no deformity. Chest Wall: Chest wall normal expansion with deep inspiration no tenderness and no deformity was found on exam, no costochondral pain or discomfort. Heart: Regular rate and rhythm, S1, S2 normal, no murmur, rub or gallop. Back: Symmetric, no curvature, ROM normal, no CVA tenderness. Abdomen: Soft, non-tender, no rebound or rigidity, no hepatosplenomegaly. Extremities: Extremities normal, atraumatic, no cyanosis or edema. Pulses: 2+ and symmetric. Skin: Skin color, texture, tugor normal, no rashes or lesions. Neurologic: Alert oriented x3 cranial nerves II through XII intact, no motor deficit, no abnormal balance or gait Assessment and plan/ discharge diagnosis: 1. Chest pain, atypical. Consult cardiology, serial troponins negative, no acute ischemic changes noted on 12-lead EKG, aspirin 81 mg by mouth, lipid panel ordered. 2. Hypertension. Continue with hydrochlorothiazide 12.5 mg by mouth, Norvasc 5 mg by mouth 3. GERD/ GI prophylaxis. Pepcid 20 mg by mouth, Maalox 20 mg by mouth 4 times a day 4. Chronic back pain. Moban 50 mg by mouth at bedtime as needed 5. Daily alcohol use, 2 drinks per day. 6. DVT prophylaxis. Ambulation Discharge plan: Home with self-care follow-up in outpatient setting for stress test. Impression and plan of care have been directed as dictated by the signing physician. Neli Marrufo nurse practitioner acting as scribe for signing physician. Past Medical History Past Medical History: Hypertension Additional Past Medical History / Comment(s): stenosis, back pain from injury History of Any Multi-Drug Resistant Organisms: None Reported Past Surgical History: No Surgical Hx Reported Past Psychological History: No Psychological Hx Reported Smoking Status: Former smoker Past Alcohol Use History: Daily Additional Past Alcohol Use History / Comment(s): 2/ 3 beer Past Drug Use History: Marijuana Medications and Allergies Home Medications Medication Instructions Recorded Confirmed Type Aspirin EC [Ecotrin Low Dose] 81 mg PO HS 11/23/20 01/03/22 History Meloxicam [Mobic] 15 mg PO HS PRN 11/23/20 01/03/22 History Hydrochlorothiazide 12.5 mg PO DAILY 01/03/22 01/03/22 History [hydroCHLOROthiazide] amLODIPine [Norvasc] 5 mg PO DAILY 01/03/22 01/03/22 History Atorvastatin [Lipitor] 20 mg PO HS #30 tablet 01/04/22 Rx Famotidine [Pepcid] 20 mg PO DAILY #30 tablet 01/04/22 Rx Nitroglycerin Sl Tabs [Nitrostat] 0.4 mg SUBLINGUAL Q5M PRN #30 tab 01/04/22 Rx Allergies Allergy/AdvReac Type Severity Reaction Status Date / Time No Known Allergies Allergy Verified 01/03/22 21:49 Physical Exam Vitals: Vital Signs Temp Pulse Pulse Resp BP BP Pulse Ox 01/04/22 07:15 98 F 62 15 148/87 99 01/04/22 03:43 98.1 F 62 17 134/87 99 01/04/22 00:00 84 22 137/99 99 01/03/22 21:28 72 18 149/100 97 01/03/22 19:49 81 18 146/104 98 01/03/22 18:42 98.2 F 96 16 152/96 100 Intake and Output 01/03/22 01/04/22 01/04/22 22:59 06:59 14:59 Other: # Voids 1 Weight 86.183 kg 86.183 kg Results CBC & Chem 7: 01/03/22 20:52 01/03/22 20:52 Labs: Abnormal Lab Results - Last 24 Hours (Table) 01/03/22 Range/Units 20:52 Glucose 103 H (74-99) mg/dL Total Bilirubin 1.8 H (0.2-1.3) mg/dL Thrombosis Risk Factor Assmnt - Choose All That Apply Any of the Below Risk Factors Present?: Yes Each Factor Represents 1 point: Age 41-60 years, Obesity (BMI >25) Other Risk Factors: No Other congenital or acquired thrombophilia - If yes, enter type in comment: No Thrombosis Risk Factor Assessment Total Risk Factor Score: 2 Thrombosis Risk Factor Assessment Level: Low Risk
--- NOTE | 2022-01-04 13:38 | P.CRDCN ---
History of Present Illness Consult date: 01/04/22 Consult reason: chest pain History of present illness: History of present illness: This is a 51-year-old male with past history of hypertension, no history of coronary artery disease, no significant family history of coronary artery disease. He had a hospitalization in October 2019 for chest pain, acute coronary syndrome was ruled out, blood pressure medications were adjusted and patient was recommended to follow-up in the office with Dr. Nichlos for outpatient stress testing. Patient did not follow-up in the office. He now complains of chest pain that is a fluttering type feeling it started on Wednesday when he was doing yard work and worsen after 2-3 hours of yard work. It was in the midsternal to left side of his chest and radiated to his back and epigastric area with nausea, without vomiting. He did feel that he had trouble taking a deep breath. He had a little dizziness but was very mild. Patient was a smoker of tobacco and quit 18 years ago. He smokes marijuana on a daily basis and drinks 2-3 alcohol beverages daily. EKG is a sinus rhythm with no acute ST changes Troponin negative on 3 draws. CBC within normal limits. Electrolytes and renal function normal. Total bilirubin 1.8 otherwise liver function tests are normal. Lipase 64. Chest x-ray is normal Review Of Systems: Constitutional: No fever, no chills. No weakness, fatigue or lethargy. EENT: No headache. No dizziness. Lungs: No shortness of breath, cough, no sputum production. No wheezing. Cardiovascular: Reported chest painresolved, no lower extremity edema. No palpitations. No paroxysmal nocturnal dyspnea. No orthopnea. No lightheade dness or dizziness. No syncopal episodes. Abdominal: No abdominal pain. No nausea, vomiting. No diarrhea. No constipation. No bloody or tarry stools.. No loss of appetite. Genitourinary: No dysuria.. No urinary retention. Musculoskeletal: No myalgias. No muscle weakness, no gait dysfunction, no frequent falls. No back pain. No neck pain. Integumentary: No wounds, no lesions. No rash or pruritus. No unusual bruising. Neurologic: No aphasia. No facial droop. No change in mentation. No head injury. No headache. No paralysis. No paresthesia. Psychiatric: No depression. No anxiety. Endocrine: No abnormal blood sugars. Physical examination: Gen: This is a a 51-year-old male. He is resting in bed and appears to be comfortable and in no acute distress HEENT: Head is atraumatic, normocephalic. Pupils equal, round. Sclerae is anicteric. NECK: Supple. No JVD. No lymphadenopathy. No thyromegaly. LUNGS: Clear to auscultation. No wheezes or rhonchi. No intercostal ret ractions. HEART: Regular rate and rhythm. No murmur. ABDOMEN: Soft. Bowel sounds are present. No masses. No tenderness. EXTREMITIES: No pedal edema. No calf tenderness. NEUROLOGICAL: Patient is awake, alert and oriented x3. Cranial nerves 2 through 12 are grossly intact. Assessment: Chest pain, acute coronary syndrome ruled out Pain most likely related to gastritis as he is taking Mobic and drinking alcohol daily Hypertension Plan: Resume patient's home blood pressure medications, Maalox added Recommend follow-up with Dr. Nichols for outpatient stress test Patient is cleared for discharge home today Thank you kindly for this consultation. Nurse practitioner note has been reviewed, I agree with documented findings and plan of care. Patient was seen and examined. Past Medical History Past Medical History: Hypertension Additional Past Medical History / Comment(s): stenosis, back pain from injury History of Any Multi-Drug Resistant Organisms: None Reported Past Surgical History: No Surgical Hx Reported Past Psychological History: No Psychological Hx Reported Smoking Status: Former smoker Past Alcohol Use History: Daily Additional Past Alcohol Use History / Comment(s): 2/ 3 beer Past Drug Use History: Marijuana Medications and Allergies Home Medications Medication Instructions Recorded Confirmed Type Aspirin EC [Ecotrin Low Dose] 81 mg PO HS 11/23/20 01/03/22 History Meloxicam [Mobic] 15 mg PO HS PRN 11/23/20 01/03/22 History Hydrochlorothiazide 12.5 mg PO DAILY 01/03/22 01/03/22 History [hydroCHLOROthiazide] amLODIPine [Norvasc] 5 mg PO DAILY 01/03/22 01/03/22 History Atorvastatin [Lipitor] 20 mg PO HS #30 tablet 01/04/22 Rx Famotidine [Pepcid] 20 mg PO DAILY #30 tablet 01/04/22 Rx Nitroglycerin Sl Tabs [Nitrostat] 0.4 mg SUBLINGUAL Q5M PRN #30 tab 01/04/22 Rx Allergies Allergy/AdvReac Type Severity Reaction Status Date / Time No Known Allergies Allergy Verified 01/03/22 21:49 Physical Exam Vitals: Vital Signs Temp Pulse Pulse Resp BP BP Pulse Ox 01/04/22 07:15 98 F 62 15 148/87 99 01/04/22 03:43 98.1 F 62 17 134/87 99 01/04/22 00:00 84 22 137/99 99 01/03/22 21:28 72 18 149/100 97 01/03/22 19:49 81 18 146/104 98 01/03/22 18:42 98.2 F 96 16 152/96 100 Intake and Output 01/03/22 01/04/22 01/04/22 22:59 06:59 14:59 Other: # Voids 1 Weight 86.183 kg 86.183 kg Results 01/03/22 20:52 01/03/22 20:52 Cardiac Enzymes 01/03/22 01/03/22 01/03/22 Range/Units 20:52 20:52 20:52 WBC 8.3 (3.8-10.6) k/uL RBC 4.60 (4.30-5.90) m/uL Hgb 15.9 (13.0-17.5) gm/dL Hct 45.6 (39.0-53.0) % MCV 99.2 (80.0-100.0) fL MCH 34.6 (25.0-35.0) pg MCHC 34.9 (31.0-37.0) g/dL RDW 13.2 (11.5-15.5) % Plt Count 193 (150-450) k/uL MPV 8.5 Neutrophils % 76 % Lymphocytes % 17 % Monocytes % 4 % Eosinophils % 1 % Basophils % 0 % Neutrophils # 6.3 (1.3-7.7) k/uL Lymphocytes # 1.4 (1.0-4.8) k/uL Monocytes # 0.3 (0-1.0) k/uL Eosinophils # 0.1 (0-0.7) k/uL Basophils # 0.0 (0-0.2) k/uL PT 11.4 (9.0-12.0) sec INR 1.1 (<1.2) APTT 24.6 (22.0-30.0) sec Sodium 138 (137-145) mmol/L Potassium 3.7 (3.5-5.1) mmol/L Chloride 102 (98-107) mmol/L Carbon Dioxide 27 (22-30) mmol/L Anion Gap 9 mmol/L BUN 15 (9-20) mg/dL Creatinine 0.94 (0.66-1.25) mg/dL Est GFR (CKD-EPI)AfAm >90 (>60 ml/min/1.73 sqM) Est GFR (CKD-EPI)NonAf >90 (>60 ml/min/1.73 sqM) Glucose 103 H (74-99) mg/dL Calcium 9.7 (8.4-10.2) mg/dL Magnesium 2.1 (1.6-2.3) mg/dL Total Bilirubin 1.8 H (0.2-1.3) mg/dL AST 39 (17-59) U/L ALT 36 (4-49) U/L Alkaline Phosphatase 61 (38-126) U/L Troponin I (0.000-0.034) ng/mL Total Protein 7.4 (6.3-8.2) g/dL Albumin 4.8 (3.5-5.0) g/dL Lipase 64 (23-300) U/L 01/03/22 01/04/22 01/04/22 Range/Units 20:52 00:46 04:43 WBC (3.8-10.6) k/uL RBC (4.30-5.90) m/uL Hgb (13.0-17.5) gm/dL Hct (39.0-53.0) % MCV (80.0-100.0) fL MCH (25.0-35.0) pg MCHC (31.0-37.0) g/dL RDW (11.5-15.5) % Plt Count (150-450) k/uL MPV Neutrophils % % Lymphocytes % % Monocytes % % Eosinophils % % Basophils % % Neutrophils # (1.3-7.7) k/uL Lymphocytes # (1.0-4.8) k/uL Monocytes # (0-1.0) k/uL Eosinophils # (0-0.7) k/uL Basophils # (0-0.2) k/uL PT (9.0-12.0) sec INR (<1.2) APTT (22.0-30.0) sec Sodium (137-145) mmol/L Potassium (3.5-5.1) mmol/L Chloride (98-107) mmol/L Carbon Dioxide (22-30) mmol/L Anion Gap mmol/L BUN (9-20) mg/dL Creatinine (0.66-1.25) mg/dL Est GFR (CKD-EPI)AfAm (>60 ml/min/1.73 sqM) Est GFR (CKD-EPI)NonAf (>60 ml/min/1.73 sqM) Glucose (74-99) mg/dL Calcium (8.4-10.2) mg/dL Magnesium (1.6-2.3) mg/dL Total Bilirubin (0.2-1.3) mg/dL AST (17-59) U/L ALT (4-49) U/L Alkaline Phosphatase (38-126) U/L Troponin I <0.012 <0.012 <0.012 (0.000-0.034) ng/mL Total Protein (6.3-8.2) g/dL Albumin (3.5-5.0) g/dL Lipase (23-300) U/L Coagulation 01/03/22 Range/Units 20:52 PT 11.4 (9.0-12.0) sec APTT 24.6 (22.0-30.0) sec CBC 01/03/22 Range/Units 20:52 WBC 8.3 (3.8-10.6) k/uL RBC 4.60 (4.30-5.90) m/uL Hgb 15.9 (13.0-17.5) gm/dL Hct 45.6 (39.0-53.0) % Plt Count 193 (150-450) k/uL Comprehensive Metabolic Panel 01/03/22 Range/Units 20:52 Sodium 138 (137-145) mmol/L Potassium 3.7 (3.5-5.1) mmol/L Chloride 102 (98-107) mmol/L Carbon Dioxide 27 (22-30) mmol/L BUN 15 (9-20) mg/dL Creatinine 0.94 (0.66-1.25) mg/dL Glucose 103 H (74-99) mg/dL Calcium 9.7 (8.4-10.2) mg/dL AST 39 (17-59) U/L ALT 36 (4-49) U/L Alkaline Phosphatase 61 (38-126) U/L Total Protein 7.4 (6.3-8.2) g/dL Albumin 4.8 (3.5-5.0) g/dL Current Medications Generic Name Dose Route Start Last Admin Trade Name Freq PRN Reason Stop Dose Admin Amlodipine Besylate 5 mg 01/04/22 09:00 Amlodipine 5 Mg Tab PO DAILY [facility] Aspirin 81 mg 01/04/22 21:00 Aspirin 81 Mg PO HS [facility] Hydrochlorothiazide 12.5 mg 01/04/22 09:00 Hydrochlorothiazide 12.5 Mg Cap PO DAILY [facility] Meloxicam 15 mg 01/04/22 08:30 Meloxicam 7.5 Mg Tab PO HS PRN Pain Nitroglycerin 0.4 mg 01/04/22 00:04 Nitroglycerin Sl Tabs 0.4 Mg Tab SUBLINGUAL Q5M PRN Chest Pain Intake and Output 01/03/22 01/04/22 01/04/22 22:59 06:59 14:59 Other: # Voids 1 Weight 86.183 kg 86.183 kg 01/03/22 20:52 01/03/22 20:52
[2022-01-04] MEDS ORDERED: ASPIRIN 81 MG PO SCH (21:00)
[2022-01-05] MEDS ORDERED: ASPIRIN 325 MG TAB PO SCH (09:00)
== END 2022-01-04 11:44 | disposition home or self-care (01) ==
LOC: EC 18:36 → 6NMEDSUR 01-04 00:04
PROVIDERS: ADMIT Family Medicine; ATTEND Family Medicine
DX: R07.89 Other chest pain (principal); I10 Essential (primary) hypertension; K21.9 Gastro-esophageal reflux disease without esophagitis; R06.02 Shortness of breath; R11.0 Nausea; R42 Dizziness and giddiness; R68.83 Chills (without fever); G89.29 Other chronic pain; M54.9 Dorsalgia, unspecified; Z72.89 Other problems related to lifestyle; E66.9 Obesity, unspecified; Z68.25 Body mass index [BMI] 25.0-25.9, adult; Z79.82 Long term (current) use of aspirin; Z79.899 Other long term (current) drug therapy; Z87.828 Personal history of other (healed) physical injury and trauma; Z87.891 Personal history of nicotine dependence; Z83.79 Family history of other diseases of the digestive system; Z82.49 Family history of ischemic heart disease and other diseases of the circulatory system
CPT/HCPCS: 99285; 36415; 93005; 80061; 80053; 83690; 83735; 84484 ×2; 85025; 85610; 85730; 71046; G0378